=== PATIENT | female | born 1985 | race Caucasian/White ===

== ENCOUNTER 2018-04-05 09:21 | Day surgery (SDC) | payer OTHER ==
[~2018-04-05] VITALS: Ht 170.2 cm; Wt 59.0 kg
[2018-04-05 11:22] VITALS: BP 111/59
== END 2018-04-05 11:40 | disposition home or self-care (01) | DRG 395 ==
LOC: ORM 09:21
PROVIDERS: ATTEND Surgery
DX: K64.4 Residual hemorrhoidal skin tags (principal); Z33.1 Pregnant state, incidental; Z53.09 Procedure and treatment not carried out because of other contraindication

== ENCOUNTER 2018-06-21 09:20 | Day surgery (SDC) | payer OTHER ==
[2018-06-21] MEDS ORDERED: MOTRIN200 MG PO (11:12)
[2018-06-21] MEDS ORDERED: NEURONTIN300 MG PO (11:16)
[2018-06-21] MEDS ORDERED: PERCOCET 5/325M1 TAB PO (11:16)
[2018-06-21] MEDS ORDERED: IBUPROFEN600 MG PO (11:16)
[2018-06-21] MEDS ORDERED: LIDOCAINE22 EX (11:16)
[2018-06-21 11:33] VITALS: BP 115/71
== END 2018-06-21 11:55 | disposition home or self-care (01) | DRG 349 ==
LOC: ORM 09:20
PROVIDERS: ATTEND Surgery
PROC: 06BY3ZC Excision of Hemorrhoidal Plexus, Percutaneous Approach (ICD-10-PCS; principal; 2018-06-21)
DX: K64.4 Residual hemorrhoidal skin tags (principal)
CPT/HCPCS: C9290